=== PATIENT | male | born 1970 ===

== ENCOUNTER 2017-01-16 07:42 | Emergency (ER) | payer MEDICAID, MEDICARE ==
[2017-01-16 07:51] VITALS: BP 118/79; PULSE 92; RESP 20; TEMP 97.8; O2SAT 97
--- NOTE | 2017-01-16 08:04 | C.PDOC ---
Time Seen by Provider: 01/16/17 08:00 Chief Complaint (Nursing): Substance Abuse Past Medical History Vital Signs: Last Vital Signs Temp 97.8 F 01/16/17 07:50 Pulse 92 H 01/16/17 07:50 Resp 20 01/16/17 07:50 BP 118/79 01/16/17 07:50 Pulse Ox 97 01/16/17 07:50 - Social History Hx Alcohol Use: No Hx Substance Use: Yes - Immunization History Hx Tetanus Toxoid Vaccination: Yes Hx Influenza Vaccination: Yes Hx Pneumococcal Vaccination: (unk) ED Course And Treatment O2 Sat by Pulse Oximetry: 97 Progress - Re-Evaluation Re-evaluation Note: 01/16/17 08:01 D/W CRISIS NO DETOX BEDS AVAIL. - Data Reviewed Data Reviewed: Old records Disposition Counseled Patient/Family Regarding: Diagnosis, Need For Followup - Disposition Referrals: Reception Interviewer Service [Outside] [facility] [Outside] DETOX,[facility] [Other] Disposition: HOME/ ROUTINE Disposition Time: 08:02 Condition: GOOD Instructions: Narcotic Abuse (ED) - Clinical Impression Clinical Impression: Narcotic abuse
--- NOTE | 2017-01-16 08:12 | C.PDOC ---
History Of Present Illness REQUESTING HEROIN DETOX. +IVDA, LAST USE @ 12 AM ATG ARCHITECT. DENIES OTHER DRUG USE. DENIES NV, MYALGIA ALSO CO NEW ONSET L FACIAL HEADACHE NEAR EYEBROW AREA. NO TRAUMA. 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 DENIES PHOTOPHOBIA, VISION LOSS , FB SENSATION. NO EYELID SWELL, PAIN. PAIN WORSE W EYE MOVEMENT. EXAM MOD DIST NONTOXIC HEENT R PROSTHETIC EYE. NO PERIORB ABN, DEFORM. NO L PROPTOSIS; +REPRODUC PAIN W L EYE ADDUCTION. NO PARALYSIS. NO PAIN W OTHER EOM ROM. NONTEND. NO GROSS VISION DEF. CONJUNCTIVA CLEAR. NO DC PSYCH CALM COOPERATIVE NO S/S ACUTE INTOX OR WITHDRAWAL REMAINDER NEG Time Seen by Provider: 01/16/17 08:00 Chief Complaint (Nursing): Substance Abuse History Per: Patient History/Exam Limitations: no limitations Current Symptoms Are (Timing): Still Present Recent travel outside of the [place]: No Past Medical History Reviewed: Historical Data, Nursing Documentation, Vital Signs Vital Signs: Last Vital Signs Temp 97.8 F 01/16/17 07:50 Pulse 92 H 01/16/17 07:50 Resp 20 01/16/17 07:50 BP 118/79 01/16/17 07:50 Pulse Ox 97 01/16/17 09:19 Family History: States: Unknown Family Hx - Social History Hx Alcohol Use: No Hx Substance Use: Yes - Immunization History Hx Tetanus Toxoid Vaccination: Yes Hx Influenza Vaccination: Yes Hx Pneumococcal Vaccination: (unk) Review Of Systems Except As Marked, All Systems Reviewed And Found Negative. Constitutional: Negative for: Fever, Chills Cardiovascular: Negative for: Chest Pain Respiratory: Negative for: Cough, Shortness of Breath, Wheezing Gastrointestinal: Negative for: Nausea, Vomiting Skin: Negative for: Rash Physical Exam - Physical Exam Appears: Non-toxic, Other (MODERATE DISTRESS) Skin: Warm, Dry Eye(s): right: Other (R PROSTHETIC EYE. NO PERIORB ABN, DEFORM. NO L PROPTOSIS; +REPRODUC PAIN W L EYE ADDUCTION. NO PARALYSIS. NO PAIN W OTHER EOM ROM. NONTEND. NO GROSS VISION DEF. CONJUNCTIVA CLEAR. NO DC), left: Normal Inspection Ear(s): Bilateral: Normal Nose: Normal Oral Mucosa: Moist Chest: Symmetrical Cardiovascular: Rhythm Regular Respiratory: Normal Breath Sounds, No Rales, No Rhonchi, No Wheezing Gastrointestinal/Abdominal: Soft, No Tenderness, No Guarding, No Rebound Back: Normal Inspection Extremity: Normal ROM, Capillary Refill (< 2 SEC.) Neurological/Psych: Oriented x3, Other (CALM COOPERATIVE NO S/S ACUTE INTOX OR WITHDRAWAL) ED Course And Treatment O2 Sat by Pulse Oximetry: 97 (RA) Pulse Ox Interpretation: Normal - CT Scan/US CT HEAD Other Rad Studies (CT/US): Radiology Report Reviewed CT/US Interpretation: IMPRESSION: No acute intracranial abnormality. Minimal chronic microvascular ischemic changes for example in the right frontal subcortical white matter. Punctate hypodensity in the left basal ganglia suggestive for lacunar infarct and or dilated prevascular space. Right orbital prosthesis. Progress - Re-Evaluation Re-evaluation Note: 01/16/17 08:48 CT HEAD, LABS, TYLENOL, REGLAN ORDERED. 01/16/17 09:18 ADVISED BY RN PT TOLD DETOX THAT HE NOW NO LONGER WISHES TO STAY DUE TO A COURT DATE. PT ELOPED PRIOR TO MY REEVAL, DISCUSSION RESULTS. - Data Reviewed Data Reviewed: Diagnostic imaging, Old records Disposition - Disposition Referrals: [facility]OX,[facility] [Other] Perinatal Educator Service [Outside] [facility] [Outside] Disposition: ELOPEMENT - ER ONLY Disposition Time: 09:19 Condition: STABLE Instructions: Narcotic Abuse (ED) - Clinical Impression Clinical Impression: Narcotic abuse, Headache - Scribe Statement The provider has reviewed the documentation as recorded by the Nathalia BUCKLEY Provider Attestation: All medical record entries made by the Nathalia were at my direction and personally dictated by me. I have reviewed the chart and agree that the record accurately reflects my personal performance of the history, physical exam, medical decision making, and the department course for this patient. I have also personally directed, reviewed, and agree with the discharge instructions and disposition.
--- NOTE | 2017-01-16 09:14 | CT ---
PROCEDURE: CT HEAD WITHOUT CONTRAST. HISTORY: Left periorbital headache COMPARISON: None available. TECHNIQUE: Axial computed tomography images were obtained through the head/brain without intravenous contrast. Radiation dose: Total exam DLP = eight hundred seventy-four mGy-cm. This CT exam was performed using one or more of the following dose reduction techniques: Automated exposure control, adjustment of the mA and/or kV according to patient size, and/or use of iterative reconstruction technique. FINDINGS: HEMORRHAGE: No intracranial hemorrhage. BRAIN: No mass effect or edema. Minimal scattered focal lucencies in the subcortical and periventricular white matter suggestive for chronic microvascular ischemic change. Punctate hypodensity in the left basal ganglia suggestive for lacunar infarct versus dilated prevascular space. VENTRICLES: Unremarkable. No hydrocephalus. CALVARIUM: Unremarkable. PARANASAL SINUSES: Unremarkable as visualized. No significant inflammatory changes. MASTOID AIR CELLS: Unremarkable as visualized. No inflammatory changes. OTHER FINDINGS: Right orbital prosthesis IMPRESSION: No acute intracranial abnormality. Minimal chronic microvascular ischemic changes for example in the right frontal subcortical white matter. Punctate hypodensity in the left basal ganglia suggestive for lacunar infarct and or dilated prevascular space. Right orbital prosthesis. If headache or focal neurologic deficit persists, consider further evaluation with MRI.
== END 2017-01-16 09:30 | disposition left against medical advice (07) ==
LOC: C.ER 07:42
DX: F11.10 Opioid abuse, uncomplicated (principal); R51 Headache

== ENCOUNTER 2017-01-19 22:59 | Emergency (ER) | payer MEDICARE ==
[2017-01-19 23:30] VITALS: RESP 18; O2SAT 98
--- NOTE | 2017-01-20 01:13 | C.PDOC ---
History Of Present Illness Patient presents to the ED seeking a place to stay. Patient admits to heroin abuse and is aware no detox beds are available. Patient denies any suicidal ideations, homicidal ideations, or physical complaints at this time. Time Seen by Provider: 01/20/17 01:13 Chief Complaint (Nursing): Substance Abuse History Per: Patient History/Exam Limitations: no limitations Suicide/Self Injury Attempted (Context): None Severity: None Pain Scale Rating Of: 0 Associated Symptoms: denies: Suicidal Thoughts, Suicidal Plan Involuntary Hold By: None Recent travel outside of the [place]: No Additional History Per: Patient Past Medical History Reviewed: Historical Data, Nursing Documentation, Vital Signs Vital Signs: Last Vital Signs Temp 98.1 F 01/19/17 23:28 Pulse 89 01/20/17 01:31 Resp 18 01/20/17 01:31 BP 124/70 01/20/17 01:31 Pulse Ox 98 01/20/17 01:44 - Medical History PMH: Hepatitis Family History: States: Unknown Family Hx - Social History Hx Alcohol Use: No Hx Substance Use: Yes - Immunization History Hx Tetanus Toxoid Vaccination: Yes Hx Influenza Vaccination: Yes Hx Pneumococcal Vaccination: (unk) Review Of Systems Constitutional: Negative for: Fever, Chills Cardiovascular: Negative for: Chest Pain, Palpitations Respiratory: Negative for: Cough, Shortness of Breath Gastrointestinal: Negative for: Nausea, Vomiting, Abdominal Pain, Diarrhea Physical Exam - Physical Exam Appears: Non-toxic, No Acute Distress Skin: Warm, Dry Head: Atraumatic Eye(s): bilateral: Normal Inspection, PERRL, EOMI Oral Mucosa: Moist Teeth: Other (poor dentition ) Neck: Supple Chest: Symmetrical, No Deformity Cardiovascular: Rhythm Regular Respiratory: No Rales, No Rhonchi, No Wheezing Gastrointestinal/Abdominal: Soft, No Tenderness, No Distention, No Guarding, No Rebound Extremity: Normal ROM, No Tenderness, Capillary Refill (good capillary refill, less than two seconds ), No Swelling Neurological/Psych: Oriented x3 ED Course And Treatment O2 Sat by Pulse Oximetry: 98 (room air ) Pulse Ox Interpretation: Normal Disposition Counseled Patient/Family Regarding: Studies Performed, Diagnosis, Need For Followup - Disposition Referrals: [facility] [Outside] Disposition: HOME/ ROUTINE Disposition Time: 01:13 Condition: FAIR Instructions: Narcotic Abuse (ED) - Clinical Impression Clinical Impression: Drug abuse - Scribe Statement The provider has reviewed the documentation as recorded by the Scribe Juanita Johnson All medical record entries made by the Bambiibgilberto were at my direction and personally dictated by me. I have reviewed the chart and agree that the record accurately reflects my personal performance of the history, physical exam, medical decision making, and the department course for this patient. I have also personally directed, reviewed, and agree with the discharge instructions and disposition.
[2017-01-20 05:35] VITALS: BP 116/65; PULSE 84; TEMP 98.4
== END 2017-01-20 06:08 | disposition home or self-care (01) ==
LOC: C.ER 22:59
DX: F19.10 Other psychoactive substance abuse, uncomplicated (principal)

== ENCOUNTER 2017-01-20 23:37 | Inpatient (IN) | payer MEDICARE ==
--- NOTE | 2017-01-20 23:59 | C.PDOC ---
History Of Present Illness pt requests heroin detox. last used a few hours ago. No cp or palpitations. Denies suicidal or homicidal ideation Time Seen by Provider: 01/20/17 23:59 Chief Complaint (Nursing): Substance Abuse History Per: Patient History/Exam Limitations: no limitations Onset/Duration Of Symptoms: Days Current Symptoms Are (Timing): Still Present Suicide/Self Injury Attempted (Context): None Modifying Factor(s): Other (heroin) Severity: None Pain Scale Rating Of: 0 Associated Symptoms: denies: Anger, Depression, Suicidal Thoughts Involuntary Hold By: None Recent travel outside of the [place]: No Additional History Per: Patient Past Medical History Reviewed: Historical Data, Nursing Documentation, Vital Signs Vital Signs: Last Vital Signs Temp 98.5 F 01/21/17 02:53 Pulse 84 01/21/17 02:53 Resp 20 01/21/17 02:53 BP 100/60 01/21/17 02:53 Pulse Ox 98 01/21/17 02:53 - Medical History PMH: Hepatitis Denies: Diabetes, HIV, HTN, Seizures, Sexually Transmitted Disease Family History: States: No Known Family Hx - Social History Hx Alcohol Use: No Hx Substance Use: Yes - Immunization History Hx Tetanus Toxoid Vaccination: Yes Hx Influenza Vaccination: Yes Hx Pneumococcal Vaccination: (unk) Review Of Systems Constitutional: Negative for: Fever, Chills Eyes: Negative for: Vision Change ENT: Negative for: Throat Pain Cardiovascular: Negative for: Chest Pain Respiratory: Negative for: Shortness of Breath Gastrointestinal: Negative for: Nausea, Vomiting, Abdominal Pain Genitourinary: Negative for: Dysuria Musculoskeletal: Negative for: Back Pain Skin: Negative for: Rash Neurological: Negative for: Weakness Psych: Positive for: Anxiety Physical Exam - Physical Exam Appears: Non-toxic, No Acute Distress Skin: Warm, Dry Head: Normacephalic Eye(s): bilateral: Normal Inspection Oral Mucosa: Moist Neck: Supple Chest: Symmetrical Cardiovascular: Rhythm Regular Respiratory: No Rales, No Rhonchi, No Wheezing Gastrointestinal/Abdominal: No Soft, No Tenderness Back: No CVA Tenderness Extremity: Normal ROM Extremity: Bilateral: Atraumatic, Normal Color And Temperature, Normal ROM Pulses: Left Dorsalis Pedis: Normal, Right Dorsalis Pedis: Normal Neurological/Psych: Oriented x3, Normal Speech, Normal Cognition Gait: Steady ED Course And Treatment - Laboratory Results Result Diagrams: 01/21/17 00:10 01/21/17 00:10 O2 Sat by Pulse Oximetry: 100 Pulse Ox Interpretation: Normal Disposition Discussed With Dr.: Lee Dickerson Comment: accepted the pt on his service and took over the care at 3:11 AM Counseled Patient/Family Regarding: Studies Performed, Diagnosis - Disposition Disposition: HOSPITALIZED Disposition Time: 23:59 Condition: FAIR - POA Present On Arrival: None - Clinical Impression Clinical Impression: Narcotic abuse, UTI (urinary tract infection) Decision To Admit - Pt Status Changed To: Hospital Disposition Of: Inpatient - Admit Certification Admit to Inpatient:: After my assessment, the patient will require hospitalization for at least two midnights. This is because of the severity of symptoms shown, intensity of services needed, and/or the medical risk in this patient being treated as an outpatient. - InPatient: Physician Admission Certification: I certify that this patient requires 2 or more midnights of care for the following reason:: After my assessment, the patient will require hospitalization for at least two midnights. This is because of the severity of symptoms shown, intensity of services needed, and/or the medical risk in this patient being treated as an outpatient. - . Bed Request Type: Detox Admitting Physician: Lee Dickerson Patient Diagnosis: Narcotic abuse, UTI (urinary tract infection)
[2017-01-21 00:25] LABS: BASO # 0.1 K/uL (0.0-0.2); BASO % 0.6 % (0.0-2.0); EOS # 0.1 K/uL (0.0-0.7); EOS % 1.3 % (0.0-4.0); HEMOGLOBIN 11.7 g/dL (12.0-18.0); LYMPH # 2.4 K/uL (1.0-4.3); LYMPH % 26.9 % (20.0-40.0); MEAN CELL VOLUME 87.7 fL (80.0-94.0); MEAN CORPUSCULAR HEMOGLOBIN 29.8 pg (27.0-31.0); MEAN PLATELET VOLUME 8.2 fL (7.2-11.7); MONO # 0.9 K/uL (0.0-0.8); MONO % 10.4 % (0.0-10.0); NEUT # 5.5 K/uL (1.8-7.0); NEUT % 60.8 % (50.0-75.0); RBC 3.93 Mil/uL (4.40-5.90); RED CELL DISTRIBUTION WIDTH 12.9 % (11.5-14.5)
[2017-01-21 00:27] LABS: ALBUMIN 3.5 g/dL (3.5-5.0)
[2017-01-21 00:29] LABS: GFR AFRICAN-AMERICAN > 60; GFR NON-AFRICAN AMERICAN > 60
[2017-01-21 00:30] LABS: ALB/GLOB RATIO 1.1 (1.0-2.1); ALT/SGPT 36 U/L (21-72); AST/SGOT 33 U/L (17-59); BLOOD UREA NITROGEN 17 mg/dL (9-20); CALCIUM 8.7 mg/dl (8.6-10.4)
[2017-01-21 00:31] LABS: URINE BACTERIA RARE (<OCC); URINE BILIRUBIN NEGATIVE (NEGATIVE); URINE BLOOD NEGATIVE (NEGATIVE); URINE CLARITY Hazy (Clear); URINE COLOR Yellow (YELLOW); URINE GLUCOSE (UA) NORMAL (Normal); URINE LEUKOCYTE ESTERASE 1+ Leu/uL (Negative); URINE NITRATE NEGATIVE (NEGATIVE); URINE PROTEIN 1+ mg/dL (NEGATIVE)
[2017-01-21 01:03] LABS: BARBITURATES, UR NEGATIVE (NEGATIVE)
[2017-01-21 01:07] LABS: PHENCYCLIDINE, UR NEGATIVE (NEGATIVE)
[2017-01-21 01:18] LABS: BENZODIAZEPINES, UR POSITIVE (NEGATIVE)
[2017-01-21 01:19] LABS: OPIATES, UR POSITIVE (NEGATIVE)
[2017-01-21] MEDS ORDERED: Buprenorphine Hydrochloride 2 mg SL ONE ×2 (11:29→12:30)
[2017-01-21] MEDS ORDERED: Aluminum Hydroxide/Magnesium Hydroxide Susp (30 mL) PO PRN (11:30)
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
[2017-01-22] MEDS: Buprenorphine Hydrochloride 2 mg SL SCH (10:33)
--- NOTE | 2017-01-22 15:13 | PCM.PYCHPN ---
Psychiatric Progress Note - Psychiatric Progress Note Patient seen today, length of contact: 16 min Patient Chief Complaint: "Still very tired Problems Identified/Issues Discussed: The pt is seen, chart reviewed and case discussed with staff. Pt. remains in bed for most of the day and seems very lethargic. The pt is compliant with medications and reports no side effects. Symptoms are improving slowly and needs more time. After care discussed, support and psychoeducation given. Medication Change: Yes Medical Record Reviewed: Yes Mental Status Examination - Cognitive Function Orientation: Person, Place, Situation, Time Memory: Intact Attention: Poor Concentration: Poor Association: WNL Fund of Knowledge: Poor - Mood Mood: Depressed, Anxious - Affect Affect: Constricted, Depressed - Speech Speech: Soft - Formal Thought Process Formal Thought Process: No Impairment - Suicidal Ideation Suicidal Ideation: No - Homicidal Ideation Homicidal Ideation: No Goal/Treatment Plan - Goal/Treatment Plan Need for Continued Stay: Severe depression anxiety, Discharge may exacerbated symptoms, Severe functional impairment Progress Toward Problem(s) and Goals/Treatment Plan: Continue medications Support and psychoeducation daily Attend groups and activities daily After care planning by MAURICE Opioid withdrawal: Subutex detox Attend groups and activities GA for abstinence and CBT for relapse prevention Support and psychoeducation Refer to [facility] care [facility] Tobacco use Nicotine patch GA for abstinence Psychoeducation and CBT Supportive therapy
[2017-01-22] MEDS ORDERED: Buprenorphine Hydrochloride 2 mg SL ONE (18:00)
[2017-01-23] MEDS: Buprenorphine Hydrochloride 2 mg SL SCH (10:09)
[2017-01-23] MEDS ORDERED: Buprenorphine Hydrochloride 2 mg SL ONE (10:14)
--- NOTE | 2017-01-23 15:04 | PCM.PYCHPN ---
Psychiatric Progress Note - Psychiatric Progress Note Patient seen today, length of contact: 15 min Patient Chief Complaint: "Feeling much better" Problems Identified/Issues Discussed: The pt is seen, chart reviewed and case discussed with staff. Pt. is out of bed today and seems much happier. He reports that the detox is going well. The pt is compliant with medications and reports no side effects. Symptoms are improving slowly and needs more time. After care discussed, support and psychoeducation given. Medication Change: Yes (Detox changes daily.) Medical Record Reviewed: Yes Mental Status Examination - Cognitive Function Orientation: Person, Place, Situation, Time Memory: Intact Attention: WNL Concentration: WNL Association: WNL Fund of Knowledge: WNL - Mood Mood: Neutral - Affect Affect: Constricted - Speech Speech: Soft - Formal Thought Process Formal Thought Process: No Impairment - Suicidal Ideation Suicidal Ideation: No - Homicidal Ideation Homicidal Ideation: No Goal/Treatment Plan - Goal/Treatment Plan Need for Continued Stay: Discharge may exacerbated symptoms, Severe functional impairment Progress Toward Problem(s) and Goals/Treatment Plan: Continue medications Support and psychoeducation daily Attend groups and activities daily After care planning by MAURICE Opioid withdrawal: Subutex detox Attend groups and activities DE for abstinence and CBT for relapse prevention Support and psychoeducation Refer to after care long term care administrator rehab Tobacco use Nicotine patch DE for abstinence Psychoeducation and CBT Supportive therapy Estimated Date of D/C: 01/26/17
[2017-01-24] MEDS ORDERED: Buprenorphine Hydrochloride 2 mg SL ONE (10:00)
--- NOTE | 2017-01-24 17:29 | PCM.PYCHPN ---
Psychiatric Progress Note - Psychiatric Progress Note Patient seen today, length of contact: 15 min Patient Chief Complaint: "I need to clean my eye" Problems Identified/Issues Discussed: The pt is seen, chart reviewed, case discussed with staff. Support given, CBT and CA used briefly No new symptoms reported, improving slowly and needs some more time No SEs from medications, risks discussed. After care discussed - accepted t [facility] He wants a solution for his eye Medication Change: Yes (Detox changes daily.) Medical Record Reviewed: Yes Mental Status Examination - Cognitive Function Orientation: Person, Place, Situation, Time Memory: Intact Attention: WNL Concentration: WNL Association: WNL Fund of Knowledge: WNL - Mood Mood: Neutral - Affect Affect: Constricted - Speech Speech: Soft - Formal Thought Process Formal Thought Process: No Impairment - Suicidal Ideation Suicidal Ideation: No - Homicidal Ideation Homicidal Ideation: No Goal/Treatment Plan - Goal/Treatment Plan Need for Continued Stay: Discharge may exacerbated symptoms, Severe functional impairment Progress Toward Problem(s) and Goals/Treatment Plan: Continue medications Support and psychoeducation daily Attend groups and activities daily After care planning by MAURICE Opioid withdrawal: Subutex detox Attend groups and activities CA for abstinence and CBT for relapse prevention Support and psychoeducation Refer to after care party plan sales director rehab Tobacco use Nicotine patch CA for abstinence Psychoeducation and CBT Supportive therapy Estimated Date of D/C: 01/26/17
[2017-01-24] MEDS ORDERED: Aritificial Tears (15ml) OU SCH (18:00)
[2017-01-25] MEDS: Buprenorphine Hydrochloride 2 mg SL SCH (09:00)
--- NOTE | 2017-01-25 14:09 | PCM.PYCHPN ---
Psychiatric Progress Note - Psychiatric Progress Note Patient seen today, length of contact: 15 min Patient Chief Complaint: I'm doing good Problems Identified/Issues Discussed: Patient seen, chart reviewed, case discussed with the staff. Issues related to illness and treatment were discussed with the patient. Reported compliant with treatment with no adverse affects. Tolerating treatment very well. Reported feeling better with no withdrawal symptoms. At the time of evaluation, patient was awake alert oriented 3, had no delusions, no auditory or visual hallucinations, no suicidal ideations or homicidal ideations. Medical Problems: None reported Diagnostic Results: Reviewed DSM 5 Symptoms Update: Improvement with treatment Medication Change: No Medical Record Reviewed: Yes Mental Status Examination - Cognitive Function Orientation: Person, Place, Situation, Time Memory: Intact Attention: WNL Concentration: WNL Association: [facility] Fund of Knowledge: [facility] Decription of patient's judgement and insights: Fair - Mood Mood: Neutral - Affect Affect: Other (Appropriate) - Speech Speech: Appropriate - Formal Thought Process Formal Thought Process: No Impairment Psychotic Thoughts and Behaviors: None - Suicidal Ideation Suicidal Ideation: No - Homicidal Ideation Homicidal Ideation: No Goal/Treatment Plan - Goal/Treatment Plan Need for Continued Stay: Remain at risks for inpatient hospitalization, Discharge may exacerbated symptoms, Severe functional impairment Progress Toward Problem(s) and Goals/Treatment Plan: Patient education Supportive therapy Continue treatment as before Patient wants to go to [facility] after discharge from the hospital for follow-up care. Estimated Date of D/C: 01/26/17 - Smoking Cessation Smoking Cessation Initiated: No
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
[2017-01-26] MEDS: Buprenorphine Hydrochloride 2 mg SL SCH (09:28)
[2017-01-26 10:56] VITALS: BP 139/92; PULSE 60; RESP 16; TEMP 98.1; O2SAT 99
== END 2017-01-26 10:00 | disposition home or self-care (01) | DRG 895 ==
LOC: C.ER 23:37 → C.7D 01-21 03:12
PROVIDERS: ADMIT Psychiatry & Neurology Psychiatry; ATTEND Psychiatry & Neurology Psychiatry
PROC: HZ2ZZZZ Detoxification Services for Substance Abuse Treatment (ICD-10-PCS; principal; 2017-01-21)
PROC: HZ59ZZZ Individual Psychotherapy for Substance Abuse Treatment, Supportive (ICD-10-PCS; 2017-01-21)
PROC: HZ46ZZZ Group Counseling for Substance Abuse Treatment, Psychoeducation (ICD-10-PCS; 2017-01-21)
PROC: HZ90ZZZ Pharmacotherapy for Substance Abuse Treatment, Nicotine Replacement (ICD-10-PCS; 2017-01-21)
DX: F11.23 Opioid dependence with withdrawal (principal); B18.2 Chronic viral hepatitis C; F17.210 Nicotine dependence, cigarettes, uncomplicated; Z59.0 Homelessness; Z97.0 Presence of artificial eye